=== PATIENT | female | born 1995 | race Caucasian/White ===

== ENCOUNTER 2021-10-03 09:05 | Outpatient (CLI) | payer OTHER, SELFPAY ==
[2021-10-03 11:11] LABS: Estradiol 39.6 pg/mL; Prolactin 13.1 ng/mL; Thyroid Stim Hormone (TSH) 2.57 uIU/mL (0.358-3.74)
[2021-10-05 13:31] LABS: Testosterone Free 3.8 pg/mL (0.0-4.2)
== END 2021-10-03 23:59 | disposition short-term general hospital (02) ==
PROVIDERS: PCP Family Medicine; Visit Provider Student in an Organized Health Care Education/Training Program
DX: N91.5 Oligomenorrhea, unspecified (principal)
CPT/HCPCS: 36415; 82627; 82670; 83001; 83002; 84146; 84402; 84443; 82626

== ENCOUNTER → 2022-05-10 | Outpatient (CLI) | payer OTHER, SELFPAY ==
[2022-05-10 16:51] LABS: Absolute Lymphocyte Count 2.92 X10^3/uL (0.83-4.51); Absolute Neutrophil Count 5.6 X10^3/uL (2.0-7.7); Basophil# 0.03 X10^3/uL; Basophil% 0.3 % (0-1); Eosinophils% 1.1 % (0-5); Hematocrit 36.9 % (37-47); Hemoglobin 12.8 g/dL (12.0-15.0); Lymphocyte # 2.92 X10^3/ul (0.83-4.51); Lymphocyte % 31.6 % (19-41); Mean Corp Hgb Conc 34.7 g/dL (32-36); Mean Corpuscular Hgb 32.1 pg (27.0-32.0); Mean Corpuscular Volume 92.5 fL (81-99); Mean Platelet Vol. 9.7 fl (6.2-12.0); Monocyte# 0.62 X10^3/uL; Monocyte% 6.7 % (0-10); NRBC Flagged by Analyzer 0 % (0-5); Neutrophil # 5.56 X10^3/uL (2.7-7.7); Neutrophil % 60.1 % (47-70); Platelet Count 286 K/mm3 (150-450); RBC Distribution Width CV 12.2 % (11.6-14.6); RBC Distribution Width SD 41.5 fl (35.1-43.9); Red Blood Count 3.99 M/mm3 (4.2-5.4); White Blood Count 9.3 K/mm3 (4.4-11.0)
[2022-05-10 18:00] LABS: HIV - WCH Non-Reactive (Nonreactive); Hepatitis B Surface Antigen Non-Reactive (Nonreactive); Hepatitis C Antibody Non-Reactive (Nonreactive); Rubella IgG Reactive (Nonreactive); Syphilis Antibodies Non-reactive
[2022-05-13 00:07] LABS: Chlamydia By Nucleic Acid AMP Negative (Negative)
[2022-05-13 17:11] LABS: Gonococcus By Nucleic Acid AMP Negative (Negative)
[2022-05-14 15:43] LABS: V-Zoster IgG (Immunity) 2216 index (Immune >165)
[2022-05-16 15:02] LABS: HPV Reflexed? NOT INDICATED
== END | disposition home or self-care (01) ==
LOC: WOBLAB 15:38
PROVIDERS: PCP Family Medicine; Visit Provider Student in an Organized Health Care Education/Training Program
DX: Z34.81 Encounter for supervision of other normal pregnancy, first trimester (principal); Z11.3 Encounter for screening for infections with a predominantly sexual mode of transmission; Z12.4 Encounter for screening for malignant neoplasm of cervix
CPT/HCPCS: 36415; 85025; 86703; 86762; 86780; 86787; 86803; 87086; 87340; 87491; 87591; 88175; G0145

== ENCOUNTER 2022-06-06 11:47 | Outpatient (CLI) | payer OTHER, SELFPAY | END 2022-06-06 23:59 | disposition home or self-care (01) | PROVIDERS: PCP Family Medicine; Visit Provider Student in an Organized Health Care Education/Training Program | DX: R30.0 Dysuria (principal); N77.1 Vaginitis, vulvitis and vulvovaginitis in diseases classified elsewhere | CPT/HCPCS: 87086 ==

== ENCOUNTER 2022-06-11 21:19 | Emergency (ER) | payer OTHER, SELFPAY ==
[2022-06-11 21:20] VITALS: BP 121/88; PULSE 85; RESP 15; TEMP 36.9; O2SAT 98; BMI 28.1
--- NOTE | 2022-06-11 22:36 | ED.VIS.FEGU ---
HPI HPI - Female History of Present Illness Chief Complaint: Vag Bld, Preg Detail of Chief Complaint: Vaginal spotting that started June Informant: patient Pain Pain: Positive for Pelvic Pain and Vaginal Pain Onset: Days Context: Sudden Onset Timing: Intermittent and Waxes and wanes Quality: Positive for Cramping (Dariel is severe cramping pain) Current Severity: Mild Maximum Severity: Severe Worsened by: - (Nothing) Relieved by: - (Nothing) Bleeding Issue: Positive for Vaginal bleeding (Has not used a pad since onset. Increased today); Negative for Passing clots or Passing tissue Onset: Days Context: Sudden Onset Timing: Intermittent Current Severity: Spotting Maximum Severity: Spotting Vaginal Discharge Onset: Today, Yesterday, Hours, Days, Weeks and Month(s) Associated Symptoms Associated Symptoms: Positive for Frequency and Missed Period; Negative for Dysuria, Urgency or Hematuria Last known menstrual period: Patient is 12 weeks gestation based on ultrasound performed June 06. Test: Positive Sexually: Positive for Active Control: No control P: 0 Ab: 0 Narrative Narrative: Patient is a 27-year-old female who presents with spotting. She contacted her search strategist and recommend she come to the hospital because she had increased bleeding. She complains of cramping pain. She denies history of endometriosis, ovarian cysts or STI. Patient denies of pain referred to the shoulder. Denies orthostatic symptoms. She does not know her blood type. Prior similar symptoms: No Recent Illness/Hospitalization: No PFSH PFSH Medical History no medical history no medical history Home Medications NK 06/11/22 [History Last Taken Unknown] Allergy/AdvReac Type Severity Reaction Status Date / Time No Known Allergies Allergy Verified 06/11/22 21:24 Surgical History no surgical history no surgical history Social History (Updated 06/11/22 @ 22:[address] Francesco Jackson MD) household members: significant other Smoking Status: Never smoker substance use type: does not use ROS ROS ED Constitutional Constitutional ED: Denies chills, fever(s), subjective or sweats Eyes Eyes: Denies blurry vision, change in vision or diplopia ENT ENT ED: Denies ear pain, rhinorrhea or sore throat Cardiovascular Cardiovascular: Denies chest pain, palpitations or racing heartbeat Respiratory/Chest Respiratory/Chest: Denies cough, dyspnea or dyspnea on exertion Gastrointestinal Gastrointestinal: Reports abdominal pain; Denies constipation, diarrhea, melena, nausea or vomiting Genitourinary Genitourinary ED: Denies dysuria, hematuria or urinary frequency Musculoskeletal Musculoskeletal: Denies arthralgias, myalgias or neck pain Integumentary Denies abscess, Abrasions or rash Neurologic Neurologic: Denies headache(s), paresthesias or weakness Hematologic/Lymphatic Hematologic/Lymphatic: Denies easy bleeding or easy bruising EXAM Physical Exam Const Vital Signs: 06/11/22 21:20 Temperature 98.5 F Temperature Source Temporal Pulse Rate 85 Respiratory Rate 15 Blood Pressure 121/88 H Blood Pressure Mean 99 Pulse Ox 98 Oxygen Delivery Method Room Air Positive well nourished and well developed; Negative for obese, cachectic, contractures or unkempt General Appearance ED: well developed and NAD; Negative for unkempt, cachectic, contractures, odor of alcohol detected or pallor Nutritional Appearance: Negative for cachectic or obese HEENT Reports moist mucous membranes HEENT Narrative: Head is atraumatic normocephalic. Ears normal. Nares patent. Mucosa moist. Eyes PERRL and EOMs intact bilaterally General Eye ED: Negative for pale conjunctiva or scleral icterus Neck supple and no JVD Chest Wall Negative for inspection of chest normal or palpation of chest normal Resp normal respiratory effort and clear to auscultation bilaterally Cardio regular rate, regular rhythm, S1 normal heart sound, no murmurs and no JVD GI normal to inspection, nondistended, normoactive bowel sounds, soft to palpation, non-tender and non-distended Back/Spine no CVA tenderness Extremity normal to inspection and full ROM General Extremety ED: Negative for edema General Extremity: Negative for edema Neuro oriented x3, CN's II-XII intact bilaterally and no sensory deficits noted Sensorium / Orientation: alert Motor Exam: strength 5/5 throughout Psych mental status grossly normal Appearance: Negative for unkempt Skin no rashes or lesions noted and no wounds General Skin Exam: Negative for jaundice or pallor MDM MDM MDM Narrative Medical decision making narrative: ABG Rh was obtained since patient not no blood type. Transabdominal trauma was obtained since heart tones were not noted. heart tones 163. Bitemporal measurement indicates 13 weeks 6 days. Based on ultrasound was performed 6 days ago patient should be 12 weeks 6 days. There is a small chorionic bleed noted. This is most likely the cause of her mild spotting. Patient was informed of her ultrasound findings, blood type and reasons to return. Lab Data Attestation: I reviewed the patient's lab results. Labs: Laboratory Results - last 24 hr 06/11/22 21:55 Blood Type O POSITIVE Discharge Plan Triage Chief Complaint: Vag Bld, Preg ED Provider: Francesco Jackson Dx/Rx/DC Orders Clinical Impression: Threatened Instructions: Bleeding During Early Prescriptions: No Action NK Primary Care Provider: Elder Lewis Referrals: Marjorie Butt DO [Med Staff - Active Staff] - Keep Shanti appointment Elder Lewis MD [Primary Care Provider] - Activity Restrictions/Additional Instructions: 1. Return if you have bleeding of 1 pad per hour x4 hours 2. Return immediately if you have significant bleeding with clots and become lightheaded 3. Pelvic rest as long as you have vaginal bleeding Disposition Disposition: Home, Self Care
[2022-06-11 23:27] VITALS: BP 121/88; PULSE 85; RESP 15; O2SAT 98
== END 2022-06-11 23:28 | disposition home or self-care (01) ==
PROVIDERS: Emergency Provider Emergency Medicine; PCP Family Medicine; Visit Provider Emergency Medicine
DX: O20.0 Threatened abortion (principal); O20.8 Other hemorrhage in early pregnancy; O99.891 Other specified diseases and conditions complicating pregnancy; R10.2 Pelvic and perineal pain; Z3A.12 12 weeks gestation of pregnancy
CPT/HCPCS: 86900; 86901; 99283; A4216

== ENCOUNTER → 2022-09-06 | Outpatient (CLI) | payer OTHER, SELFPAY ==
[2022-09-06 09:41] LABS: Absolute Lymphocyte Count 2.72 X10^3/uL (0.83-4.51); Absolute Neutrophil Count 6.6 X10^3/uL (2.0-7.7); Basophil# 0.04 X10^3/uL; Basophil% 0.4 % (0-1); Eosinophil# 0.13 X10^3/uL; Eosinophils% 1.3 % (0-5); Hematocrit 36.8 % (37-47); Hemoglobin 11.9 g/dL (12.0-15.0); Lymphocyte # 2.72 X10^3/ul (0.83-4.51); Lymphocyte % 26.5 % (19-41); Mean Corp Hgb Conc 32.3 g/dL (32-36); Mean Corpuscular Hgb 31.4 pg (27.0-32.0); Mean Corpuscular Volume 97.1 fL (81-99); Mean Platelet Vol. 8.7 fl (6.2-12.0); Monocyte# 0.71 X10^3/uL; Monocyte% 6.9 % (0-10); NRBC Flagged by Analyzer 0 % (0-5); Neutrophil # 6.61 X10^3/uL (2.7-7.7); Neutrophil % 64.3 % (47-70); Platelet Count 265 K/mm3 (150-450); RBC Distribution Width CV 12.5 % (11.6-14.6); RBC Distribution Width SD 44.4 fl (35.1-43.9); Red Blood Count 3.79 M/mm3 (4.2-5.4); White Blood Count 10.3 K/mm3 (4.4-11.0)
[2022-09-06 10:10] LABS: Glucose Challenge Gest 1H 50g 90 mg/dL (70-140)
== END | disposition home or self-care (01) ==
PROVIDERS: PCP Family Medicine; Visit Provider Obstetrics & Gynecology
DX: Z34.82 Encounter for supervision of other normal pregnancy, second trimester (principal)
CPT/HCPCS: 36415; 82950; 85025

== ENCOUNTER → 2022-11-27 | Outpatient (CLI) | payer OTHER, SELFPAY ==
[2022-11-27 10:07] LABS: Hematocrit 38.6 % (37-47); Hemoglobin 13.3 g/dL (12.0-15.0); Mean Corp Hgb Conc 34.5 g/dL (32-36); Mean Corpuscular Hgb 32.1 pg (27.0-32.0); Mean Corpuscular Volume 93.2 fL (81-99); Mean Platelet Vol. 9.3 fl (6.2-12.0); Platelet Count 275 K/mm3 (150-450); RBC Distribution Width CV 12.2 % (11.6-14.6); Red Blood Count 4.14 M/mm3 (4.2-5.4); White Blood Count 9.8 K/mm3 (4.4-11.0)
[2022-11-27 11:23] LABS: Syphilis Antibodies Non-reactive
== END | disposition home or self-care (01) ==
LOC: WOBLAB 09:40
PROVIDERS: PCP Family Medicine; Referring Provider Student in an Organized Health Care Education/Training Program; Visit Provider Student in an Organized Health Care Education/Training Program
DX: Z34.83 Encounter for supervision of other normal pregnancy, third trimester (principal); Z36.85 Encounter for antenatal screening for Streptococcus B
CPT/HCPCS: 36415; 85027; 86780; 87081

== ENCOUNTER → 2022-12-11 | Outpatient (CLI) | payer OTHER, SELFPAY ==
[2022-12-11 10:16] LABS: Absolute Lymphocyte Count 2.77 X10^3/uL (0.83-4.51); Absolute Neutrophil Count 7.9 X10^3/uL (2.0-7.7); Basophil# 0.05 X10^3/uL; Basophil% 0.4 % (0-1); Eosinophil# 0.14 X10^3/uL; Eosinophils% 1.2 % (0-5); Hematocrit 38.7 % (37-47); Hemoglobin 12.7 g/dL (12.0-15.0); Lymphocyte # 2.77 X10^3/ul (0.83-4.51); Lymphocyte % 23.6 % (19-41); Mean Corp Hgb Conc 32.8 g/dL (32-36); Mean Corpuscular Hgb 31.2 pg (27.0-32.0); Mean Corpuscular Volume 95.1 fL (81-99); Mean Platelet Vol. 9.9 fl (6.2-12.0); Monocyte# 0.74 X10^3/uL; Monocyte% 6.3 % (0-10); NRBC Flagged by Analyzer 0 % (0-5); Neutrophil # 7.94 X10^3/uL (2.7-7.7); Neutrophil % 67.8 % (47-70); Platelet Count 275 K/mm3 (150-450); RBC Distribution Width CV 12.4 % (11.6-14.6); RBC Distribution Width SD 43.3 fl (35.1-43.9); Red Blood Count 4.07 M/mm3 (4.2-5.4); White Blood Count 11.7 K/mm3 (4.4-11.0)
[2022-12-11 10:25] LABS: Protein, Urine (Random) 28.8 mg/dL (<11.9); Protein:Creat Ratio 169 mg/g CRE (0-200)
[2022-12-11 10:26] LABS: ALB/GLOB Ratio 0.7 RATIO (0.9-2.4); AST(SGOT) 17 U/L (15-37); Alanine Aminotransfer ALT/SGPT 15 U/L (13-56); Albumin, Serum 2.8 g/dL (3.2-5.0); Alkaline Phosphatase 152 U/L (45-117); Anion Gap 5 (5-15); BUN 9 mg/dL (7-18); BUN/Creat Ratio 12.9 RATIO (10-20); Calcium,Total 8.9 mg/dL (8.5-10.1); Chloride 105 mmol/L (98-107); EST Glomerular Filtration Rate 106 mL/min (>60); Est Glom Filt Rate - Afr Amer 128 mL/min (>60); Globulin 3.8 g/dL (2.2-4.2); Glucose 88 mg/dL (74-106); LDH 181 U/L (84-246); Potassium 3.9 mmol/L (3.5-5.1); Protein, Total 6.6 g/dL (6.4-8.2); Sodium Level 134 mmol/L (136-145)
== END | disposition home or self-care (01) ==
LOC: WOBLAB 09:18
PROVIDERS: PCP Family Medicine; Visit Provider Student in an Organized Health Care Education/Training Program
DX: Z34.83 Encounter for supervision of other normal pregnancy, third trimester (principal); Z3A.00 Weeks of gestation of pregnancy not specified
CPT/HCPCS: 36415; 80053; 82570; 83615; 84156; 85025; 87086

== ENCOUNTER 2022-12-12 20:35 | Inpatient (IN) | payer OTHER, SELFPAY ==
[2022-12-12] VITALS (16 sets, daily range): BP systolic 119–170; BP diastolic 76–103; PULSE 65–95; TEMP 37.2–37.5; O2SAT 98; BMI 36.6
--- NOTE | 2022-12-12 17:55 | HP.PCM.OB_ITS ---
History and Physical Date of Admission: 12/12/22 HPI: 27-year-old G1, P0 at 39/0 weeks, CECILIA 12/19/2022 by 8-week ultrasound, presenting with vaginal bleeding. Patient states that she went to use the restroom and noted blood in the toilet. Unsure if there had been any other bleeding since that time, came immediately to hospital and was wearing black leggings. Reports cramping, no regular contractions or severe abdominal pain. Reports movement. Denies leaking of fluid. Denies headache or vision changes, chest pain or shortness of breath, nausea or vomiting, diarrhea constipation, fevers or chills. complicated by: Gestational hypertension diagnosed on 12/11, patient declined induction of labor. 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 Class I obesity Surgical history: 1. LEEP in 2016 Medications: 1. vitamin Family history: Denies history of blood clots or bleeding disorders Allergies: No known drug allergies Social history: Denies tobacco, alcohol, drug use Review of system: Negative otherwise stated above Physical exam: Vitals: pending General: No acute distress HEENT: Normal cephalic/atraumatic, PERRLA Cardiorespiratory: No increased effort Abdomen: Soft, nontender, gravid Extremities: No edema Musculoskeletal: Strength out of 5 throughout extremities Neurologic: Cranial nerves II through XII grossly intact, no focal deficits CE cl/th/high, minimal brown mucous on glove FHR: 145/mod chetan/+accel/no decel [place]: q4 Assessment/plan: 27-year-old G1, P0 at 39/0 weeks, CECILIA 12/20/2019 3 x 8-week ultrasound, presenting with vaginal bleeding. ?Patient is wilver regularly, however has not had cervical change from yesterday in office. status is reassuring at this time. Abdomen is soft. Patient is comfortable. No evidence of abruption at this time. ?Gestational hypertension. Will check blood pressures every hour while being monitored. ?Again discussed recommendations for induction of labor for gestational hypertension. Patient understands risks of not inducing with this medical complication in as discussed at her appointment yesterday. ?Patient is unsure about induction of labor. Discussed at least monitoring patient for a few hours for stability at this time. Discussed that if she were to have severe range blood pressures greater than 160/110, increased vaginal bleeding, intolerance of contractions would again recommend induction of labor at this time. Patient understands and would like to discuss with her , elect starting with monitoring. -CEFM
[2022-12-12] MEDS: Lactated Ringers 1,000 ML 50 ML IV (21:00)
[2022-12-12 21:19] LABS: Absolute Neutrophil Count 10.2 X10^3/uL (2.0-7.7); Basophil# 0.04 X10^3/uL; Basophil% 0.3 % (0-1); Eosinophil# 0.14 X10^3/uL; Eosinophils% 0.9 % (0-5); Hematocrit 39.2 % (37-47); Lymphocyte % 23.7 % (19-41); Mean Corp Hgb Conc 33.2 g/dL (32-36); Mean Corpuscular Hgb 31.1 pg (27.0-32.0); Mean Corpuscular Volume 93.8 fL (81-99); Mean Platelet Vol. 9.7 fl (6.2-12.0); Monocyte% 7.3 % (0-10); NRBC Flagged by Analyzer 0 % (0-5); Neutrophil % 67.2 % (47-70); Platelet Count 281 K/mm3 (150-450); RBC Distribution Width CV 12.6 % (11.6-14.6); RBC Distribution Width SD 43.2 fl (35.1-43.9); Red Blood Count 4.18 M/mm3 (4.2-5.4); White Blood Count 15.2 K/mm3 (4.4-11.0)
[2022-12-12 21:36] LABS: ALB/GLOB Ratio 0.7 RATIO (0.9-2.4); AST(SGOT) 14 U/L (15-37); Alanine Aminotransfer ALT/SGPT 15 U/L (13-56); Albumin, Serum 2.9 g/dL (3.2-5.0); Alkaline Phosphatase 163 U/L (45-117); Anion Gap 4 (5-15); BUN 8 mg/dL (7-18); BUN/Creat Ratio 9.8 RATIO (10-20); Calcium,Total 9.3 mg/dL (8.5-10.1); Chloride 106 mmol/L (98-107); Creatinine, Serum 0.82 mg/dL (0.55-1.02); EST Glomerular Filtration Rate 88 mL/min (>60); Est Glom Filt Rate - Afr Amer 107 mL/min (>60); Estimated Creatinine Clearance 99.33 ml/min; Globulin 4.3 g/dL (2.2-4.2); Glucose 78 mg/dL (74-106); Potassium 3.8 mmol/L (3.5-5.1); Protein, Total 7.2 g/dL (6.4-8.2); Sodium Level 134 mmol/L (136-145)
[2022-12-12 21:41] LABS: LDH 191 U/L (84-246)
[2022-12-12 21:42] LABS: Alanine Aminotransfer ALT/SGPT 14 U/L (13-56); Uric Acid 5.1 mg/dL (2.6-6.0)
[2022-12-12 21:58] LABS: Syphilis Antibodies Non-reactive
[2022-12-12 22:11] LABS: Protein, Urine (Random) < 6.0 mg/dL (<11.9)
[2022-12-12] MEDS: Lidocaine 1% (20 ml mdv) 20 ML Vial INFILT (23:55)
[2022-12-12] MEDS: Oxytocin 10 UNITS/ML Vial IM (23:55)
[2022-12-12] MEDS: Oxytocin 15 Units/NS 250ml 15 UNITS/250 ML IV.SOLN 83 UNITS IV (23:55)
[2022-12-13] VITALS (24 sets, daily range): BP systolic 123–217; BP diastolic 60–91; PULSE 74–107; RESP 15–18; TEMP 36.5–37.5; O2SAT 81–98
--- NOTE | 2022-12-13 00:05 | EX.PCM.OBRPT ---
Maternal Data Information Final CECILIA: 12/19/22 Vaginal Delivery Operative Information Date of Procedure: 12/12/22 Pre-Operative Diagnosis: Scruggs intrauterine at term, spontaneous rupture of membranes, gestational hypertension Post-Operative Diagnosis: Scruggs intrauterine at term, spontaneous rupture of membranes, gestational hypertension Surgery / Procedure Performed: Spontaneous Vaginal Delivery Type of Anesthesia: None Estimated Blood Loss: 300cc Findings Description of Procedure: Spontaneous vaginal delivery viable male. Nuchal cord x2, loose, reduced. Baby to mom. Cord clamped and cut. Spontaneous delivery of placenta. Second-degree laceration repaired in the usual fashion after lidocaine injection, hemostatic. A Gender: Male (1 minute): 8 (5 minute): 9 Complication Complications: None
--- NOTE | 2022-12-13 06:50 | PCM.PN.OB ---
Subjective Subjective No overnight complaints. Denies headache, vision change, chest pain, shortness of breath, nausea vomit, right upper quadrant pain. Objective Data Objective Data Vital Signs: Vital Signs Temp Pulse Resp BP Pulse Ox O2 Del Method 99.3 F H 101 H 16 125/60 H 97 Room Air 12/13/22 05:24 12/13/22 05:24 12/13/22 05:24 12/13/22 05:24 12/13/22 05:24 12/13/22 05:24 Oxygen Delivery Method Room Air Weight: 233 lb 7.512 oz Body Mass Index (BMI) 36.6 Intake & Output: Intake and Output for Last 24 Hours 12/11/22 12/12/22 12/13/22 23:59 23:59 23:59 Intake Total 145.83 / 145.83 250 / 250 Output Total 1300 / 1300 Balance 145.83 / -154.17 -1050 / -1050 Lab / Micro Data Result Diagrams: 12/12/22 21:00 12/12/22 21:00 Labs: Laboratory Results - last 24 hr 12/12/22 21:00: WBC 15.2 H, RBC 4.18 L, Hgb 13.0, Hct 39.2, MCV 93.8, MCH 31.1, MCHC 33.2, RDW Std Deviation 43.2, RDW Coeff of Yu 12.6, Plt Count 281, MPV 9.7, Immature Gran % (Auto) 0.600, Neut % (Auto) 67.2, Lymph % (Auto) 23.7, [place] % (Auto) 7.3, Eos % (Auto) 0.9, Baso % (Auto) 0.3, Absolute Neuts (auto) 10.2 H, Absolute Lymphs (auto) 3.60, Nucleated RBC % 0 12/12/22 21:00: Blood Type O POSITIVE, Antibody Screen NEGATIVE 12/12/22 21:00: U Random Total Protein < 6.0, Urine Creatinine 16.10, Protein/Creatinin Ratio TNP 12/12/22 21:00: Uric Acid 5.1, ALT 14 12/12/22 21:00: Syphilis Total Ab Non-reactive 12/12/22 21:00: Lactate Dehydrogenase 191 12/12/22 21:00: Sodium 134 L, Potassium 3.8, Chloride 106, Carbon Dioxide 24.0, Anion Gap 4 L, BUN 8, Creatinine 0.82, Estim Creat Clear Calc 99.33, Est GFR (MDRD) Af Amer 107, Est GFR (MDRD) Non-Af 88, BUN/Creatinine Ratio 9.8 L, Glucose 78, Calcium 9.3, Total Bilirubin 0.70, AST 14 L, ALT 15, Alkaline Phosphatase 163 H, Total Protein 7.2, Albumin 2.9 L, Globulin 4.3 H, Albumin/Globulin Ratio 0.7 L Physical Exam Const alert, oriented x3, no apparent distress, average body habitus, healthy appearing and well nourished HEENT normocephalic and moist oral mucous membranes Eyes PERRL Neck full ROM Resp normal respiratory effort, no retractions and no use of accessory muscles GI GI Narrative: Soft, nontender, uterus firm and below umbilicus Extremity normal to inspection, full ROM and no clubbing, cyanosis or edema Neuro moves all extremities and no focal motor deficits Psych mental status grossly normal, affect normal, speech normal and activity/motor behavior normal Assessment & Plan (1) Vaginal delivery: PLAN: day 1. Breast-feeding. Pain well controlled. Gestational hypertension, patient guilherme asymptomatic, during labor patient with severe range blood pressures that were not persistent. Patient currently on no antihypertensive medications. Educated patient on ongoing plan of watching blood pressures and labs for 2 to 3 days. Educated patient and partner on gestational hypertension and her borderline persistent severe range blood pressures during labor and need to monitor. Patient and partner state understanding. For labs tomorrow
[2022-12-14] VITALS (7 sets, daily range): BP systolic 110–134; BP diastolic 69–77; PULSE 77–93; RESP 16–18; TEMP 37.2; O2SAT 96–100
[2022-12-14 05:48] LABS: Hematocrit 32.6 % (37-47); Hemoglobin 10.9 g/dL (12.0-15.0); Mean Corp Hgb Conc 33.4 g/dL (32-36); Mean Corpuscular Hgb 31.7 pg (27.0-32.0); Mean Corpuscular Volume 94.8 fL (81-99); Mean Platelet Vol. 9.2 fl (6.2-12.0); Platelet Count 215 K/mm3 (150-450); RBC Distribution Width CV 12.8 % (11.6-14.6); RBC Distribution Width SD 44.1 fl (35.1-43.9); Red Blood Count 3.44 M/mm3 (4.2-5.4)
[2022-12-14 06:16] LABS: ALB/GLOB Ratio 0.7 RATIO (0.9-2.4); AST(SGOT) 30 U/L (15-37); Alanine Aminotransfer ALT/SGPT 15 U/L (13-56); Albumin, Serum 2.5 g/dL (3.2-5.0); Alkaline Phosphatase 115 U/L (45-117); Anion Gap 5 (5-15); BUN 7 mg/dL (7-18); BUN/Creat Ratio 10.7 RATIO (10-20); Calcium,Total 8.5 mg/dL (8.5-10.1); Chloride 109 mmol/L (98-107); Creatinine, Serum 0.65 mg/dL (0.55-1.02); EST Glomerular Filtration Rate 114 mL/min (>60); Est Glom Filt Rate - Afr Amer 138 mL/min (>60); Estimated Creatinine Clearance 125.31 ml/min; Globulin 3.5 g/dL (2.2-4.2); Glucose 80 mg/dL (74-106); Potassium 3.8 mmol/L (3.5-5.1); Sodium Level 137 mmol/L (136-145)
--- NOTE | 2022-12-14 07:34 | PN.OBGYN_ITS ---
Subjective Subjective Patient feeling well. No headaches or vision changes, chest pain or shortness of breath, nausea or vomiting. Pain controlled. Breast-feeding. Did have 1 clot this morning, otherwise lochia has been minimal. Objective Data Objective Data Vital Signs: Vital Signs Temp Pulse Resp BP Pulse Ox O2 Del Method 97.9 F 79 16 134/75 H 97 Room Air 12/13/22 23:55 12/14/22 05:39 12/14/22 05:38 12/14/22 05:38 12/14/22 05:39 12/14/22 05:38 Oxygen Delivery Method Room Air Weight: 105.9 kg Body Mass Index (BMI) 36.6 Intake & Output: Intake and Output for Last 24 Hours 12/12/22 12/13/22 12/14/22 23:59 23:59 23:59 Intake Total 145.83 / 145.83 250 / 250 Output Total 2200 / 2200 Balance 145.83 / -154.17 -1950 / -1950 Lab / Micro Data Attestation: I reviewed the patient's lab results. Result Diagrams: 12/14/22 05:35 12/14/22 05:35 Labs: Laboratory Results - last 24 hr 12/14/22 05:35: WBC 12.0 H, RBC 3.44 L, Hgb 10.9 L, Hct 32.6 L, MCV 94.8, MCH 31.7, MCHC 33.4, RDW Std Deviation 44.1 H, RDW Coeff of Yu 12.8, Plt Count 215, MPV 9.2 12/14/22 05:35: Sodium 137, Potassium 3.8, Chloride 109 H, Carbon Dioxide 23.0, Anion Gap 5, BUN 7, Creatinine 0.65, Estim Creat Clear Calc 125.31, Est GFR (MDRD) Af Amer 138, Est GFR (MDRD) Non-Af 114, BUN/Creatinine Ratio 10.7, Glucose 80, Calcium 8.5, Total Bilirubin 0.40, AST 30, ALT 15, Alkaline Phosphatase 115, Total Protein 6.0 L, Albumin 2.5 L, Globulin 3.5, Albumin/Globulin Ratio 0.7 L Physical Exam Const alert, oriented x3 and no apparent distress HEENT normocephalic Head and Scalp: atraumatic Neck full ROM Resp normal respiratory effort Cardio regular rate GI normal to inspection, nondistended, normoactive bowel sounds GI Narrative: Uterus 2 cm below umbilicus Back/Spine normal ROM Extremity normal to inspection Extremity Narrative: Minimal pedal edema Neuro no focal motor deficits and no sensory deficits noted Psych mental status grossly normal and affect normal Assessment & Plan (1) Vaginal delivery: PLAN: day 2 status post . Complicated by gestational hypertension. Patient had nonpersistent severe range blood pressures during la bor, since that time blood pressures have been within normal limits or mildly elevated. Recommend monitoring at least throughout today. If stable, will discharge home. Patient has blood pressure cuff at home. Discussed to call if blood pressures are rising to the 140s or 150s systolic, to call if blood pressure greater than 160/110, or if she develops headache that is unresolved with Tylenol and ibuprofen/visual disturbances/nausea vomiting/not feeling well. Reviewed bleeding. Discussed one-time blood clot vaginally can be normal, to monitor bleeding over time. Patient to call or return for soaking 2 pads an hour for 2 hours. Acute blood loss anemia secondary to surgery, iron supplement on home-going. Patient will need 1 week post blood pressure check. All questions answered. Reviewed plan with bedside RN. (2) Gestational HTN:
--- NOTE | 2022-12-14 07:37 | DCINST_ITS ---
Discharge Instructions Diet Discharge Diet: No restrictions Activity Discharge Activity: Return to Normal Activity and May Shower May resume sexual activity in: 4-6 weeks Weight Bearing Status: Weight bearing as tolerated Lifting Restrictions: No greater than 25 pounds Dressing / Incision Call your doctor if you observe: Fever of 101 or Higher, Change in Color, Inability to urinate, Using more than 1 pad per hour, Shortness of breath, Dizziness, Swelling in the ankles, Chest pain and Calf discomfort Follow Up Care Please Follow Up With: Marjorie Butt DO When: BP check with nurse in office Next Sunday and 6-week visit Test Results: Test results from this visit will be discussed in further detail at your follow- up appointment, if applicable. Discharge Plan Admission Admit Date/Time: 12/12/22 20:35 Primary Reason for Your Visit: Vaginal delivery Attending Provider: Marjorie Butt Primary Care Provider: Elder Lewis Instructions Additional Instructions / Restrictions: Call for headache that is unresolved, visual disturbances, blood pressure 160/110 or rising blood pressures at home. Discharge Orders/Prescriptions Prescriptions: No Action Gummies 400 mcg-35 mg- 25 mg-5 mg Tablet,Chewable 2 tab PO BID Referrals / Follow Up: Elder Lewis MD [Primary Care Provider] - Disposition Disposition (needs filled in before D/C Order can be placed): Home, Self Care
--- NOTE | 2022-12-14 11:37 | NURSING ---
1115- This RN received report from Pat Hernandez RN and will be resuming care at this time.
--- NOTE | 2022-12-14 19:21 | NURSING ---
Report given to Nirali Darnell RN who is assuming care at this time.
[2022-12-14] MEDS: Ibuprofen 600 MG Tablet PO (20:23)
== END 2022-12-14 20:40 | disposition home or self-care (01) | DRG 806 ==
LOC: WPOUT 20:38 → WP 20:38
PROVIDERS: Admitting Provider Student in an Organized Health Care Education/Training Program; PCP Family Medicine; Referring Provider Student in an Organized Health Care Education/Training Program; Visit Provider Student in an Organized Health Care Education/Training Program
DX: O13.4 Gestational [pregnancy-induced] hypertension without significant proteinuria, complicating childbirth (principal); Z37.0 Single live birth; D62 Acute posthemorrhagic anemia; Z3A.39 39 weeks gestation of pregnancy; O69.81X0 Labor and delivery complicated by cord around neck, without compression, not applicable or unspecified; O70.1 Second degree perineal laceration during delivery; O90.81 Anemia of the puerperium
CPT/HCPCS: 36415; 59025; 59050; 80053; 82570; 83615; 84156; 84460; 84550; 85025; 85027; 86780; 86850; 86900; 86901; 99221; J7120; G0378

== ENCOUNTER → 2024-02-29 | Outpatient (CLI) | payer OTHER, SELFPAY ==
[2024-03-03 20:08] LABS: Chlamydia By Nucleic Acid AMP Negative (Negative); Gonococcus By Nucleic Acid AMP Negative (Negative)
== END | disposition home or self-care (01) ==
PROVIDERS: PCP Family Medicine; Referring Provider Registered Nurse; Visit Provider Registered Nurse
DX: Z34.90 Encounter for supervision of normal pregnancy, unspecified, unspecified trimester (principal); Z3A.00 Weeks of gestation of pregnancy not specified
CPT/HCPCS: 87086; 87088; 87491; 87591

== ENCOUNTER 2024-03-28 12:31 | Outpatient (CLI) | payer OTHER, SELFPAY ==
[2024-03-28 12:56] LABS: Absolute Lymphocyte Count 2.71 X10^3/uL (0.83-4.51); Absolute Neutrophil Count 4.7 X10^3/uL (2.0-7.7); Basophil# 0.02 X10^3/uL; Basophil% 0.3 % (0-1); Eosinophil# 0.09 X10^3/uL; Eosinophils% 1.1 % (0-5); Hematocrit 37.8 % (37-47); Hemoglobin 12.8 g/dL (12.0-15.0); Lymphocyte # 2.71 X10^3/ul (0.83-4.51); Lymphocyte % 33.9 % (19-41); Mean Corp Hgb Conc 33.9 g/dL (32-36); Mean Corpuscular Hgb 30.8 pg (27.0-32.0); Mean Corpuscular Volume 90.9 fL (81-99); Monocyte# 0.42 X10^3/uL; Monocyte% 5.3 % (0-10); NRBC Flagged by Analyzer 0 % (0-5); Neutrophil # 4.73 X10^3/uL (2.7-7.7); Platelet Count 245 K/mm3 (150-450); RBC Distribution Width CV 12.4 % (11.6-14.6); RBC Distribution Width SD 41.2 fl (35.1-43.9); Red Blood Count 4.16 M/mm3 (4.2-5.4)
[2024-03-28 13:30] LABS: ALB/GLOB Ratio 0.9 RATIO (0.9-2.4); AST(SGOT) 12 U/L (15-37); Alanine Aminotransfer ALT/SGPT 17 U/L (13-56); Albumin, Serum 3.5 g/dL (3.2-5.0); Alkaline Phosphatase 51 U/L (45-117); Anion Gap 4 (5-15); BUN 6 mg/dL (7-18); BUN/Creat Ratio 10.6 RATIO (10-20); Calcium,Total 8.7 mg/dL (8.5-10.1); Chloride 105 mmol/L (98-107); Creatinine, Serum 0.56 mg/dL (0.55-1.02); EST Glomerular Filtration Rate 134 mL/min (>60); Est Glom Filt Rate - Afr Amer 162 mL/min (>60); Globulin 3.8 g/dL (2.2-4.2); Glucose 87 mg/dL (74-106); Potassium 3.7 mmol/L (3.5-5.1); Protein, Total 7.3 g/dL (6.4-8.2); Sodium Level 134 mmol/L (136-145)
[2024-03-28 14:05] LABS: HIV - WCH Non-Reactive (Nonreactive); Hepatitis B Surface Antigen Non-Reactive (Nonreactive); Hepatitis C Antibody Non-Reactive (Nonreactive); Rubella IgG Reactive (Nonreactive); Syphilis Antibodies Non-reactive
== END 2024-03-28 23:59 | disposition home or self-care (01) ==
LOC: LAB 12:32
PROVIDERS: PCP Family Medicine; Referring Provider Registered Nurse; Visit Provider Registered Nurse
DX: O13.9 Gestational [pregnancy-induced] hypertension without significant proteinuria, unspecified trimester (principal); Z11.3 Encounter for screening for infections with a predominantly sexual mode of transmission
CPT/HCPCS: 36415; 80053; 85025; 86703; 86762; 86780; 86803; 86850; 86900; 86901; 87340

== ENCOUNTER → 2024-04-23 | Outpatient (CLI) | payer OTHER, SELFPAY ==
[2024-04-23 11:17] LABS: ALB/GLOB Ratio 0.8 RATIO (0.9-2.4); AST(SGOT) 11 U/L (15-37); Alanine Aminotransfer ALT/SGPT 15 U/L (13-56); Albumin, Serum 3.2 g/dL (3.2-5.0); Alkaline Phosphatase 50 U/L (45-117); Anion Gap 8 (5-15); BUN 8 mg/dL (7-18); BUN/Creat Ratio 13.8 RATIO (10-20); Calcium,Total 8.6 mg/dL (8.5-10.1); Chloride 105 mmol/L (98-107); Creatinine, Serum 0.58 mg/dL (0.55-1.02); EST Glomerular Filtration Rate 130 mL/min (>60); Est Glom Filt Rate - Afr Amer 157 mL/min (>60); Globulin 3.9 g/dL (2.2-4.2); Glucose 89 mg/dL (74-106); Potassium 3.8 mmol/L (3.5-5.1); Protein, Total 7.1 g/dL (6.4-8.2); Sodium Level 135 mmol/L (136-145)
[2024-04-23 13:35] LABS: Protein, Urine (Random) 16.4 mg/dL (<11.9); Protein:Creat Ratio 260 mg/g CRE (0-200)
== END | disposition home or self-care (01) ==
PROVIDERS: Obstetrics & Gynecology; PCP Family Medicine; Referring Provider Obstetrics & Gynecology; Visit Provider Obstetrics & Gynecology
DX: O13.9 Gestational [pregnancy-induced] hypertension without significant proteinuria, unspecified trimester (principal); Z87.59 Personal history of other complications of pregnancy, childbirth and the puerperium; Z3A.00 Weeks of gestation of pregnancy not specified
CPT/HCPCS: 36415; 80053; 82570; 84156

== ENCOUNTER → 2024-07-15 | Outpatient (CLI) | payer OTHER, SELFPAY ==
[2024-07-15 12:08] LABS: Absolute Lymphocyte Count 2.47 X10^3/uL (0.83-4.51); Absolute Neutrophil Count 7.2 X10^3/uL (2.0-7.7); Basophil# 0.02 X10^3/uL; Basophil% 0.2 % (0-1); Eosinophil# 0.15 X10^3/uL; Eosinophils% 1.4 % (0-5); Hematocrit 35.4 % (37-47); Hemoglobin 11.8 g/dL (12.0-15.0); Lymphocyte # 2.47 X10^3/ul (0.83-4.51); Lymphocyte % 23.4 % (19-41); Mean Corp Hgb Conc 33.3 g/dL (32-36); Mean Corpuscular Hgb 31.1 pg (27.0-32.0); Mean Corpuscular Volume 93.4 fL (81-99); Mean Platelet Vol. 9.2 fl (6.2-12.0); Monocyte# 0.66 X10^3/uL; Monocyte% 6.2 % (0-10); NRBC Flagged by Analyzer 0 % (0-5); Neutrophil # 7.19 X10^3/uL (2.7-7.7); Platelet Count 276 K/mm3 (150-450); RBC Distribution Width CV 12.2 % (11.6-14.6); RBC Distribution Width SD 42.5 fl (35.1-43.9); Red Blood Count 3.79 M/mm3 (4.2-5.4); White Blood Count 10.6 K/mm3 (4.4-11.0)
[2024-07-15 12:15] LABS: Glucose Challenge Gest 1H 50g 109 mg/dL (70-140)
[2024-07-15 12:49] LABS: HIV - WCH Non-Reactive (Nonreactive); Syphilis Antibodies Non-reactive
== END | disposition home or self-care (01) ==
PROVIDERS: PCP Family Medicine; Referring Provider Nurse Practitioner Women's Health; Visit Provider Nurse Practitioner Women's Health
DX: Z34.90 Encounter for supervision of normal pregnancy, unspecified, unspecified trimester (principal)
CPT/HCPCS: 36415; 82950; 85025; 86703; 86780

== ENCOUNTER → 2024-09-09 | Outpatient (CLI) | payer OTHER, SELFPAY ==
[2024-09-09 12:18] LABS: Absolute Lymphocyte Count 2.36 X10^3/uL (0.83-4.51); Absolute Neutrophil Count 9.2 X10^3/uL (2.0-7.7); Basophil# 0.04 X10^3/uL; Basophil% 0.3 % (0-1); Eosinophil# 0.11 X10^3/uL; Eosinophils% 0.9 % (0-5); Hematocrit 36.2 % (37-47); Lymphocyte # 2.36 X10^3/ul (0.83-4.51); Lymphocyte % 18.8 % (19-41); Mean Corp Hgb Conc 33.1 g/dL (32-36); Mean Corpuscular Hgb 30.5 pg (27.0-32.0); Mean Corpuscular Volume 92.1 fL (81-99); Mean Platelet Vol. 9.6 fl (6.2-12.0); Monocyte# 0.72 X10^3/uL; Monocyte% 5.7 % (0-10); NRBC Flagged by Analyzer 0 % (0-5); Neutrophil # 9.24 X10^3/uL (2.7-7.7); Neutrophil % 73.7 % (47-70); Platelet Count 280 K/mm3 (150-450); RBC Distribution Width CV 12.1 % (11.6-14.6); RBC Distribution Width SD 40.7 fl (35.1-43.9); Red Blood Count 3.93 M/mm3 (4.2-5.4); White Blood Count 12.6 K/mm3 (4.4-11.0)
[2024-09-09 12:34] LABS: Protein, Urine (Random) 19.1 mg/dL (<11.9); Protein:Creat Ratio 189 mg/g CRE (0-200)
[2024-09-09 12:43] LABS: ALB/GLOB Ratio 0.7 RATIO (0.9-2.4); AST(SGOT) 15 U/L (15-37); Alanine Aminotransfer ALT/SGPT 14 U/L (13-56); Albumin, Serum 2.8 g/dL (3.2-5.0); Alkaline Phosphatase 116 U/L (45-117); Anion Gap 5 (5-15); BUN 6 mg/dL (7-18); Calcium,Total 8.7 mg/dL (8.5-10.1); Chloride 105 mmol/L (98-107); EST Glomerular Filtration Rate 124 mL/min (>60); Est Glom Filt Rate - Afr Amer 150 mL/min (>60); Globulin 4.2 g/dL (2.2-4.2); Glucose 93 mg/dL (74-106); LDH 190 U/L (84-246); Sodium Level 135 mmol/L (136-145)
== END | disposition home or self-care (01) ==
LOC: BWCLAB 10:39
PROVIDERS: PCP Family Medicine; Referring Provider Obstetrics & Gynecology; Visit Provider Obstetrics & Gynecology
DX: Z87.59 Personal history of other complications of pregnancy, childbirth and the puerperium (principal)
CPT/HCPCS: 36415; 80053; 82570; 83615; 84156; 85025

== ENCOUNTER → 2024-09-19 | Outpatient (CLI) | payer OTHER, SELFPAY | END | disposition home or self-care (01) | PROVIDERS: PCP Family Medicine; Referring Provider Registered Nurse; Visit Provider Registered Nurse | DX: Z34.82 Encounter for supervision of other normal pregnancy, second trimester (principal) | CPT/HCPCS: 87081; 87186 ==

== ENCOUNTER 2024-10-11 02:45 | Inpatient (IN) | payer OTHER, SELFPAY ==
[2024-10-11] VITALS (39 sets, daily range): BP systolic 111–170; BP diastolic 62–99; PULSE 69–98; RESP 14–98; TEMP 36.6–37.6; O2SAT 94–100; BMI 37.3
[2024-10-11] MEDS: Lactated Ringers 1,000 ML 50 ML IV (02:50)
--- NOTE | 2024-10-11 03:04 | HP.PCM.OB_ITS ---
HPI - General General Date of Admission: 10/11/24 HPI Narrative LAYLA CAI, is a 29 y/o @ 40 weeks 1 day who presents to L&D in active labor and srom. She was found to be 7 cm dilated by nursing staff. Patient is sitting up in bed and appears overall comfortable despite her advanced dilation. Maternal Data Information CECILIA Calculator Estimated Delivery Date Method Current WG Current Estimate 10/10/24 LMP (Certain) 40w 1d PFSH PFSH Medical History (Updated 10/11/24 @ 02:56 by Nolvia Montez) Gestational HTN Vaginal delivery Home Medications ?Medication ?Instructions ?Recorded ?Last Taken ?Type PNV 153-FA 400 mcg-om3 35 mg-dha 2 tab PO BID 12/12/22 10/10/24 History 25 mg-epa 5 mg-fish oil chew tablet ( Gummies) aspirin 81 mg tablet,delayed 81 mg PO QDAY 08/25/24 History release Allergy/AdvReac Type Severity Reaction Status Date / Time No Known Allergies Allergy Verified 10/11/24 02:29 Surgical History (Updated 10/11/24 @ 02:55 by Nolvia Montez) [place] teeth extracted History of gynecologic surgery Social History adopted: No household members: spouse and children number of children: 1 current occupational status: employed current occupation: [employer] - a few hours a week, [employer] current occupational exposures/hazards: No pets and animals: Yes (hatband changing litter box) pets and animals: cat(s) history of recent travel: No sexually active: Yes Smoking Status: Never smoker alcohol intake: never substance use type: does not use well-balanced diet: daily or most days caffeine: Yes Type: coffee eating out: rarely or never during the past year weight has: remained stable what type of physical activity do you participate in: walking frequency: 5-6 times per week duration: 30-45 minutes/day denisa/spiritism: Jewish seatbelt use: always do you feel safe at home: Yes additional social history: : [employer] (works from home) History 2 Elective abortions Hx Para 1 Spontaneous abortions Hx # Term Pregnancies Ectopic pregnancies Hx # Pregnancies Multiple births # of living children 1 Past Pregnancies Del. Date Name GA/Weeks Outcome Route Bth Weight Infant Gen Labor Lgth Anesthesia Del Locatn Provider FOB 12/12/22 Blue 39 live - full term 7lbs 10oz Male 3 no ne [facility] Dr Marjorie Butt Blue Delivery Date: 12/12/22 Last Updated by: Margret Levy RN GDM Visit Details Expected Delivery Route/Plan Labor Preferences- CB/BF classes: no labor support person: Mo labor intervention preferences: [] pain management options preferred: limited intervention/fast labors cut cord/dad catch: yes : yes PP control planned: discussed discussed possible routes of delivery and associated risks: [] special requests: [] Plans Covid status: [] Flu vaccine: declines Tdap vaccine: declined Rhogam: NA LARC form signed: yes movement and labor precautions reviewed. Problem list reviewed and updated with the most current plan of care details and appropriate orders placed. Relevant counseling for the gestational age provided. Continue routine care and follow up unless otherwise noted in visit notes/problem list details OB Flowsheet Initial Weight: 190 lb Date -?-?-?-?-?-?-?-?-?-?-?-?- EGA Weight BP Urine Prot -?-?-?-?-?-?-?-?-?-?-?-?- Glucose FHR FuHt Pres Dilation -?-?-?-?-?-?--?-?-?-?-?-?- Effaced St Visit Note 02/29/24 -?-?-?-?-?-?-?-?-?-?-?-?- 8w 0d 190 lb 6 oz (+6 oz) 123/81 -?-?-?-?-?-?-?-?-?-?-?-?- 164 -?-?-?-?-?-?-?-?-?-?-?-?- LC- CRL con with LMP. declines nipt. 03/28/24 -?-?-?-?-?-?-?-?-?-?-?-?- 12w 0d 189 lb 8 oz (-8 oz) 134/88 Negative -?-?-?-?-?-?-?-?-?-?-?-?- Negative 150 160 -?-?-?--?-?-?-?-?-?-?-?-?- SM- no vb crampi ng 04/23/24 -?-?-?-?-?-?-?-?-?-?-?-?- 15w 5d 192 lb 6 oz (+2 lb 6 oz) 130/85 Negative -?-?--?-?-?-?-?-?-?-?-?-?- Negative 155 -?-?-?-?-?-?-?-?-?-?-?-?- JV- baseline Pr: cr needed due to h/o ghtn. recommend starting baby asa. anatomy scan is scheduled. 05/19/24 -?-?-?-?-?-?-?-?-?-?-?-?- 19w 3d 195 lb (+5 lb) 118/75 Negative -?-?-?-?-?-?-?-?-?-?-?-?- Negative 145 -?-?-?-?-?-?-?-?-?-?-?-?- KW- no vb/crampi ng. + flutters. Anatomy US scheduled. 06/17/24 -?-?-?-?-?-?-?-?-?-?-?-?- 23w 4d 203 lb 2 oz (+13 lb 2 oz) 112/68 Negative -?-?-?-?-?-?-?-?-?-?-?-?- Negative 155 24 -?-?-?-?-?-?-?-?-?-?-?-?- -No VB, LOF. G ood FM. Larc 07/15/24 -?-?-?-?-?-?-?-?-?-?-?-?- 27w 4d 212 lb (+22 lb) 124/76 Negative -?-?-?-?-?-?-?-?-?-?-?-?- Negative 152 28 -?-?-?-?-?-?-?-?-?-?-?-?- MH-No vb, LOF. G ood FM. Rpt US to check placenta 07/24. 28 wk labs pending 07/28/24 -?-?-?-?-?-?-?-?-?-?-?-?- 29w 3d 215 lb (+25 lb) 128/86 Negative -?-?-?-?-?-?-?-?-?-?-?-?- Negative 155 30 -?-?-?-?-?-?-?-?-?-?-?-?- KW- no vb/lof/ct x. good fm no concerns. declines TDAP. 08/12/24 -?-?-?-?-?-?-?-?-?-?-?-?- 31w 4d 220 lb (+30 lb) 122/78 Negative -?-?-?-?-?-?-?-?-?-?-?-?- Negative 145 31 -?-?-?--?-?-?-?-?-?-?-?-?- SM- no vb lof go od fm no reuglar ctx 08/25/24 -?-?-?-?-?-?-?-?-?-?-?-?- 33w 3d 222 lb (+32 lb) 120/83 Negative -?-?-?-?-?-?-?-?-?-?-?-?- Negative 140 34 -?-?-?-?-?-?-?-?-?-?-?-?- SM- no vb lof go od fm nor egular ctx 09/09/24 -?-?-?-?-?-?-?-?-?-?-?-?- 35w 4d 225 lb 8 oz (+35 lb 8 oz) 133/84 Negative -?-?-?-?-?-?-?-?-?-?-?-?- Negative 155 36 -?-?-?-?-?-?-?-?-?-?-?-?- JV- slight eleva tion in pressure. baseline labs today. consider growth scan next visit if labs abnml or pressures are higher. 09/19/24 -?-?-?-?-?-?-?-?-?-?-?-?- 37w 0d 229 lb (+39 lb) 143/89 126/78 Negative -?-?-?-?-?-?-?-?-?-?-?-?- Negative 140 37 Cephalic -?-?-?-?-?-?-?-?-?-?-?-?- LC- no vb/ctx/lo f. good fm. no concerns today LC- no vb/ctx/lof. good fm. no concerns today. gbs obtained. declines ve. 09/23/24 -?-?-?-?-?-?-?-?-?-?-?-?- 37w 4d 229 lb 8 oz (+39 lb 8 oz) 126/86 Negative -?-?-?-?-?-?-?-?-?-?-?-?- Negative 145 38 Cephalic -?-?-?-?-?-?-?-?-?-?-?-?- JV- pt declines pelvic today. is gbs pos. no complaints today. 10/02/24 -?-?-?-?-?-?-?-?-?-?-?-?- 38w 6d 232 lb 6 oz (+42 lb 6 oz) 134/82 Trace -?-?-?-?-?-?-?-?-?-?-?-?- Negative 130 38 Cephalic -?-?-?-?-?-?-?-?-?-?-?-?- SM- no vb lof go od fm n oreuglar ctx 10/10/24 -?-?-?-?-?-?-?-?-?-?-?-?- 40w 0d 237 lb (+47 lb) 134/85 Trace -?-?-?-?-?-?-?-?-?-?-?-?- Negative 140 39 Cephalic 3 -?-?-?-?-?-?-?-?-?-?-?-?- 70 -3 KW- no vb/ lof/ctx. good fm. RTO on sunday for membrane sweep ROS Constitutional Constitutional: Denies change in weight, fatigue, fever(s), headache(s), poor appetite or weakness Eyes Eyes: Denies blurry vision, change in vision, seeing flashes or spots in vision ENT HEENT: Denies dizziness, headache(s), loss taste/smell or sore throat Cardiovascular Cardiovascular: Denies chest pain, dizziness, dyspnea, irregular heart rhythm, leg edema, palpitations, rapid heart rate or vomiting Respiratory/Chest Respiratory/Chest: Denies chest tightness, cough, dyspnea or breast pain Gastrointestinal Gastrointestinal: Denies abdominal pain, anorexia, constipation, cramping, diarrhea, hemorrhoids, vomiting or weight changes Genitourinary Genitourinary: Denies dysuria, flank pain, genital lesions, genital pain, urinary frequency or urinary urgency Musculoskeletal Musculoskeletal: Denies back pain, difficulty walking, joint pain, limited range of motion, muscle cramps or numbness Integumentary Integumentary: Denies lesions or unusual bruising Neurologic Neurologic: Denies abnormal movements, abnormal speech, dizziness, numbness, seizure-like activity or syncope Psychiatric Psychiatric: Denies anxiety, behavioral changes, change in appetite, change in libido, cognitive impairment, confusion, depression, difficulty concentrating, hallucinations or suicidal thoughts Endocrine Endocrinology: Denies excessive sweating, polydipsia or polyuria Hematologic/Lymphatic Hematologic/Lymphatic: Denies easy bleeding, easy bruising or lymphadenopathy Allergic/Immunologic Allergic/Immunologic: Denies itchy eyes, lip swelling, seasonal rhinorrhea, rhinitis, throat swelling, tongue swelling, eczemia, wheezing or asthma Vital Signs Vital Signs Vital Signs: 10/11/24 02:17 10/11/24 02:17 10/11/24 02:21 Pulse Rate 86 Blood Pressure 142/93 H BP Systolic 142 BP Diastolic 93 Pulse Ox 98 10/11/24 02:21 10/11/24 02:44 10/11/24 02:44 Pulse Rate 85 83 Blood Pressure 137/91 H BP Systolic 137 BP Diastolic 91 Pulse Ox Weight Weight: 238 lb 3.2 oz Body Mass Index (BMI) 37.3 Physical Exam Const alert, oriented x3, no apparent distress and healthy appearing General Appearance: cooperative; Negative for anxious HEENT normocephalic Face and Sinus: normal facial exam Eyes EOMs intact bilaterally and no scleral icterus General Eye: normal appearance of both eyes Neck full ROM and supple Lymph Lymphatic: no lymphadenopathy noted Chest Chest: abnormal inspection of the chest Resp normal respiratory effort Effort and Inspection: able to speak in complete sentences Cardio regular rate GI soft to palpation and non-tender Inspection: gravid Palpation: soft; Negative for tender external exam normal Amniotic Fluid: ROM+plus Back/Spine no CVA tenderness Extremity normal to inspection, full ROM and no clubbing, cyanosis or edema General Extremity: Negative for calf tenderness or edema Skin Lesions: no lesions Rashes: no rashes Psych mental status grossly normal Labs Labs Labs: Blood Type O POSITIVE Antibody Screen NEGATIVE Hct 36.2 % (37-47) L Hgb 12.0 g/dL (12.0-15.0) Syphilis Total Ab Non-reactive VZV IgG Antibody 2216 index (Immune >165) Rubella IgG Antibody Reactive (Nonreactive) Hep Bs Antigen Non-Reactive (Nonreactive) Hepatitis C Antibody Non-Reactive (Nonreactive) Chlamydia DNA (SEPIDEH) Negative (Negative) N.gonorrhoeae DNA (SEPIDEH) Negative (Negative) HIV 1&2 Antibody Non-Reactive (Nonreactive) Glucose 1 Hr 50 gm 109 mg/dL (70-140) Rhogam given: No Miscellaneous Test Assessment & Plan (1) Positive GBS test: COMMENT: treat in labor. PCN (2) History of gestational hypertension: COMMENT: previous . stable currently. Baseline labs ordered.- recommend baby asa (3) (infant): COMMENT: 15mo old/continues but once a day for comfort (4) Supervision of normal : QUALIFIERS: Normal : other normal Trimester: second trimester Qualified Code(s): Z34.82 - Encounter for supervision of other normal , second trimester COMMENT: PRR , CECILIA 2, girl [place] PC: Blue, : Blue(goes by Mo) (5) : QUALIFIERS: Weeks of gestation: 40 weeks Qualified Code(s): Z3A.40 - 40 weeks gestation of COMMENT: Discussed genetic/carrier testing, declines. PLAN: Plan Patient presents IAL, plan expectant management for , pitocin PRN Pain management: none . GBS positive plan IV PCN. - may not get enough pcn in. will notify peds Management of any complications: none I have reviewed the [facility] and made any clinically relevant updates.
[2024-10-11 03:06] LABS: Absolute Lymphocyte Count 3.77 X10^3/uL (0.83-4.51); Absolute Neutrophil Count 9.4 X10^3/uL (2.0-7.7); Basophil# 0.04 X10^3/uL; Basophil% 0.3 % (0-1); Eosinophil# 0.19 X10^3/uL; Eosinophils% 1.3 % (0-5); Hematocrit 36.8 % (37-47); Hemoglobin 12.2 g/dL (12.0-15.0); Lymphocyte # 3.77 X10^3/ul (0.83-4.51); Lymphocyte % 25.8 % (19-41); Mean Corp Hgb Conc 33.2 g/dL (32-36); Mean Corpuscular Hgb 30.1 pg (27.0-32.0); Mean Corpuscular Volume 90.9 fL (81-99); Mean Platelet Vol. 9.4 fl (6.2-12.0); Monocyte# 1.17 X10^3/uL; NRBC Flagged by Analyzer 0 % (0-5); Neutrophil # 9.35 X10^3/uL (2.7-7.7); Platelet Count 262 K/mm3 (150-450); RBC Distribution Width CV 13.2 % (11.6-14.6); RBC Distribution Width SD 43.2 fl (35.1-43.9); Red Blood Count 4.05 M/mm3 (4.2-5.4); White Blood Count 14.6 K/mm3 (4.4-11.0)
[2024-10-11 03:20] LABS: ROM Internal Control Test YES-OK TO RESULT pt. (Internal QC)
[2024-10-11 03:21] LABS: ROM Patient Test POSITIVE (Negative); Record Kit Lot#, ROM+ K2871
[2024-10-11] MEDS: Oxytocin 15 Units/NS 250ml 15 UNITS/250 ML IV.SOLN 83 UNITS IV (03:27)
[2024-10-11] MEDS: Oxytocin 10 UNITS/ML Vial IM (03:27)
--- NOTE | 2024-10-11 03:39 | OB.VAGDELI_ITS ---
Assessment & Plan (1) Positive GBS test: COMMENT: treat in labor. PCN (2) History of gestational hypertension: COMMENT: previous . stable currently. Baseline labs ordered.- recommend baby asa (3) (infant): COMMENT: 15mo old/continues but once a day for comfort (4) Supervision of normal : QUALIFIERS: Normal : other normal Trimester: second trimester Qualified Code(s): Z34.82 - Encounter for supervision of other normal , second trimester COMMENT: PRR , CECILIA 10/10, girl [place] PC: Blue, : Blue(goes by Mo) (5) : QUALIFIERS: Weeks of gestation: 40 weeks Qualified Code(s): Z3A.40 - 40 weeks gestation of COMMENT: Discussed genetic/carrier testing, declines. Maternal Data Information CECILIA Calculator Estimated Delivery Date Method Current WG Current Estimate 10/10/24 LMP (Certain) 40w 1d Final CECILIA: 10/10/24 Final CECILIA Source: LMP Vaginal Delivery Maternal Presentation Maternal Presentation: Active Labor and Spontaneous Rupture of Membranes Vaginal Delivery Information Procedure Performed: Spontaneous Vaginal Delivery and Shoulder Dystocia Maneuvers Delivery maneuver performed for shoulder dystocia: Lee maneuver and Kelley maneuver (and woodscrew ) Head to body interval: 00:30 Surgeon/Practitioner: Elizabeth Barcenas Date of Procedure: 10/11/24 Pre-Procedure Diagnosis: @ 40 weeks 1 day, SROM, active labor Post-Procedure Diagnosis: @ 40 weeks 1 day, SROM, active labor Type of anesthesia: None Estimated Blood Loss: 50cc Time of Delivery: 03:22 Findings Description of procedure: Patient began pushing and delivered the head in the NAREN presentation. The head was delivered atraumatically. The anterior did not deliver readily and a shoulder dystocia was noted. McRobert's maneuver was initiated within 5 seconds followed by the woodscrew and kelley maneuvers, which ultimately delivered the anterior and posterior shoulders almost simultaneously without complication. There was an audible pop sound followed by the rest of the infant and the infant was placed on the maternal abdomen. Delayed cord clamping was employed for approximately 60 seconds. Cord was clamped and cut and gentle traction was applied to the cord and the placenta delivered spontaneously immediately following it was noted to be intact with three-vessel cord. The perineum and vagina were inspected and noted to have a 1st degree perineal laceration. EBL was 50cc. Patient and infant tolerated delivery well. Procedure findings: viable female infant Ever[place], minor shoulder dystocia, terminal meconium Presentation: Vertex Amniotic Membrane Rupture Type: Spontaneous Amniotic Fluid Description: Clear Placental Delivery Description: Spontaneous Placenta Disposition: [facility] Specimen collected: No Cord Vessel Description: 3 Vessels Cord Entanglement: None A Gender: Female (1 minute): 8 (5 minute): 9 Delayed Cord Clamping: Yes [employer] emergency medicine nurse practitioner: No Post Vaginal Deli Medications given after delivery: IV Pitocin and IM Pitocin Episiotomy Description: None Laceration: 1st degree Complication Complications: No Multi Select Codes Urinary/Genital Urinary/Genital CPT Codes: 88676 Vaginal Delivery [facility]
--- NOTE | 2024-10-11 03:45 | DCINST_ITS ---
Discharge Instructions Diet Discharge Diet: No restrictions DC O2, CPAP, BIPAP needs Home O2 Discharge instructions: No Dressing / Incision Discharge Activity: Return to Normal Activity, May Not Drive (while taking narcotic pain medications.) and May Shower May resume sexual activity in: 4-6 weeks Dressing / Incision Call your doctor if your incision/area has: Continuous Slow Oozing, Sudden Increased Bleeding, Increased Pain/ Swelling, Increased Redness and Foul Smelling Discharge Follow Up Care Please Follow Up With: Elizabeth Barcenas DO When: Call [phone] to make an appointment with your doctor in 6 weeks. If you had elevated blood pressure or 4th degree laceration, you will need to be seen in 2 weeks. Test Results: Test results from this visit will be discussed in further detail at your follow- up appointment, if applicable. Discharge Plan Admission Admit Date/Time: 10/11/24 02:40 Attending Provider: Elizabeth Barcenas Primary Care Provider: Elder Lewis Discharge Orders/Prescriptions Prescriptions: No Action aspirin 81 mg tablet,delayed release (DR/EC) 81 mg PO QDAY Gummies 400 mcg-35 mg- 25 mg-5 mg Tablet,Chewable 2 tab PO BID Referrals / Follow Up: Elder Lewis MD [Primary Care Provider] -
[2024-10-11 03:48] LABS: Syphilis Antibodies Non-reactive
[2024-10-11] MEDS: Ibuprofen 600 MG Tablet PO (20:45)
[2024-10-12 04:34] VITALS: BP 141/84; PULSE 69; O2SAT 94
[2024-10-12 04:35] VITALS: BP 141/84; PULSE 69; RESP 16; TEMP 36.7; O2SAT 96
[2024-10-12 08:47] VITALS: BP 126/86; PULSE 81
[2024-10-12 09:02] VITALS: BP 126/86; PULSE 81; RESP 16; TEMP 37.3
--- NOTE | 2024-10-12 09:39 | PN.OBGYN_ITS ---
Subjective Subjective Patient doing well without complaints. Tolerating PO. Ambulating and voiding without difficulty. Feeding well. Denies chest pain, shortness of breath, calf pain/swelling, fevers, chills, lightheadedness. Objective Data Objective Data Vital Signs: Vital Signs Temp Pulse Resp BP Pulse Ox O2 Del Method 99.1 F 81 16 126/86 H 96 Room Air 10/12/24 09:02 10/12/24 09:02 10/12/24 09:02 10/12/24 09:02 10/12/24 04:35 10/12/24 09:02 Oxygen Delivery Method Room Air Weight: 238 lb 3.2 oz Body Mass Index (BMI) 37.3 Intake & Output: Intake and Output for Last 24 Hours 10/10/24 10/11/24 10/12/24 23:59 23:59 23:59 Intake Total 280.83 / 280.83 Output Total 350 / 350 Balance -69.17 / -69.17 Lab / Micro Data 10/11/24 02:50 ROS Constitutional Constitutional: Denies chills, fatigue, fever(s), poor appetite or weakness Eyes Eyes: Denies blurry vision, change in vision, seeing flashes or spots in vision ENT HEENT: Denies dizziness, headache(s), loss taste/smell or sore throat Cardiovascular Cardiovascular: Denies chest pain, dizziness, dyspnea, irregular heart rhythm, palpitations or rapid heart rate Respiratory/Chest Respiratory/Chest: Denies chest tightness, cough, dyspnea or breast pain Gastrointestinal Gastrointestinal: Denies abdominal pain, constipation or vomiting Genitourinary Genitourinary: Denies dysuria or flank pain Musculoskeletal Musculoskeletal: Denies difficulty walking, joint pain, limited range of motion or numbness Neurologic Neurologic: Denies abnormal movements, abnormal speech, dizziness, numbness, seizure-like activity or syncope Psychiatric Psychiatric: Denies anxiety, behavioral changes, change in appetite, confusion, depression or suicidal thoughts Physical Exam Const alert, oriented x3 and no apparent distress General Appearance: cooperative and comfortable Resp normal respiratory effort Cardio regular rate GI normal to inspection, nondistended, normoactive bowel sounds GI Narrative: uterus is firm below umbilicus Palpation: soft Back/Spine no CVA tenderness and thoraco-lumbar ROM normal Extremity normal to inspection, no clubbing, cyanosis or edema, no calf tenderness and no pedal edema Psych mental status grossly normal, thought process normal, cooperative, affect normal, speech normal, activity/motor behavior normal, denies homicidal ideation and denies suicidal ideation Assessment & Plan (1) Shoulder dystocia during labor and delivery: COMMENT: left clavicular fracture. baby weight 9 lbs 5 oz (2) Vaginal delivery: COMMENT: JV 10/11/24 (3) Positive GBS test: COMMENT: treat in labor. PCN (4) History of gestational hypertension: COMMENT: previous . stable currently. Baseline labs ordered.- recommend baby asa (5) (infant): COMMENT: 15mo old/continues but once a day for comfort (6) Supervision of normal : QUALIFIERS: Normal : other normal T rimester: second trimester Qualified Code(s): Z34.82 - Encounter for supervision of other normal , second trimester COMMENT: PRR , CECILIA 10/10, girl [place] PC: Blue, : Blue(goes by Mo) (7) : QUALIFIERS: Weeks of gestation: 40 weeks Qualified Code(s): Z 3A.40 - 40 weeks gestation of COMMENT: Discussed genetic/carrier testing, declines. PLAN: Plan s/p PPD # 1 1. routine post delivery care 2. breast feeding- support given 3. rh positive 4. rubella immune 5. shoulder dystocia with clavicular fracture - baby and mom both doing well. 6. plan for dc to home after peds observation period is over.
[2024-10-12 13:56] VITALS: BP 127/81; PULSE 82
[2024-10-12 14:05] VITALS: BP 127/81; PULSE 82; RESP 16; TEMP 36.6
== END 2024-10-12 14:30 | disposition home or self-care (01) | DRG 807 ==
LOC: WP 03:27
PROVIDERS: Admitting Provider Obstetrics & Gynecology; PCP Family Medicine; Visit Provider Obstetrics & Gynecology
DX: O66.0 Obstructed labor due to shoulder dystocia (principal); Z37.0 Single live birth; O48.0 Post-term pregnancy; O99.824 Streptococcus B carrier state complicating childbirth; Z3A.40 40 weeks gestation of pregnancy; Z79.82 Long term (current) use of aspirin; Z87.59 Personal history of other complications of pregnancy, childbirth and the puerperium; O70.0 First degree perineal laceration during delivery
CPT/HCPCS: 59025; 59050; 84112; 85025; 86780; 86850; 86900; 86901